=== PATIENT | male | born 1990 ===

== ENCOUNTER 2016-12-09 21:16 | Emergency (ER) | payer BC ==
[2016-12-09 21:27] VITALS: BP 149/77
--- NOTE | 2016-12-09 22:17 | EDM.PDOC ---
ED HPI GENERAL MEDICAL PROBLEM - General Chief Complaint: Lower Extremity Injury/Pain Stated Complaint: KNEE SURGERY PATIENT/PAINFUL SPOT ON KNEE Time Seen by Provider: 12/09/16 21:42 Source of Information: Reports: Patient, RN Notes Reviewed - History of Present Illness INITIAL COMMENTS - FREE TEXT/NARRATIVE: 26-year-old male comes in with right knee pain. He had arthroscopic surgery on the knee 4 days ago at [facility]. He's been having a lot of pain since discharge. He is on OxyContin twice daily and then taking hydrocodone 1 tablet every 4 hours in addition. The hydrocodone is just not getting adequate pain relief. They then did start reading information about blood clot information and became concerned about possible blood clot formation. He does have some pain now radiating to the medial aspect of his lower leg just below the knee. Does have some mild diffuse swelling of the lower leg but not severe. He does have some diffuse swelling of the knee as well as would be expected. There is been no drainage from the incision sites. No erythema has developed of the knee or leg. He has pain. He has had no chest pain or difficulty breathing, no fever or chills. Right Knee Pain Score (Numeric/FACES): 3 - Related Data Allergies Allergy/AdvReac Type Severity Reaction Status Date / Time azithromycin Allergy Cannot Verified 12/09/16 21:27 Remember Sulfa (Sulfonamide Allergy Cannot Verified 12/09/16 21:27 Antibiotics) Remember Home Meds: Home Meds . [No Known Home Meds] 10/17/15 [History] Past Medical History - Past Health History Medical/Surgical History: Denies Medical/Surgical History Cardiovascular History: Reports: Heart Murmur, Hypertension - Past Surgical History Musculoskeletal Surgical History: Reports: Arthroscopic Knee, Other (See Below) Social & Family History - Family History Family Medical History: Noncontributory - Tobacco Use Smoking Status *Q: Unknown Ever Smoked Years of Tobacco use: 12 Packs/Tins Daily: 1 Second Hand Smoke Exposure: No - Recreational Drug Use Recreational Drug Use: No Review of Systems - Review of Systems Review Of Systems: See Below Constitutional: Denies: Chills, Diaphoresis, Fever Mouth/Throat: Reports: No Symptoms Respiratory: Denies: Shortness of Breath, Pleuritic Chest Pain, Hemoptysis Cardiovascular: Denies: Chest Pain, Palpitations GI/Abdominal: Denies: Abdominal Pain, Nausea, Vomiting Musculoskeletal: Reports: Leg Pain (Right medial proximal leg just below the knee), Joint Pain, Joint Swelling (Right knee right knee). Denies: Muscle Pain Skin: Denies: Erythema Neurological: Denies: Numbness, Tingling, Weakness ED EXAM, GENERAL - Physical Exam Exam: See Below General Appearance: Alert, Moderate Distress Eye Exam: Bilateral Eye: PERRL Throat/Mouth: Normal Inspection Neck: Supple, Full Range of Motion Respiratory/Chest: No Respiratory Distress, Lungs Clear, Normal Breath Sounds Cardiovascular: Regular Rate, Rhythm Extremities: Normal Inspection, Pedal Edema (There is mild swelling of the proximal right lower leg, moderate swelling of the knee, incision sites look good, no drainage, diffuse tenderness of the knee as expected). No: Leg Pain, Increased Warmth, Redness Neurological: Alert, Oriented, No Motor/Sensory Deficits Skin Exam: Warm, Dry, Normal Color Course - Vital Signs Last Recorded V/S: Last Vital Signs Temp 97.3 F 12/09/16 21:23 Pulse 93 12/09/16 21:23 Resp 16 12/09/16 21:23 BP 149/77 H 12/09/16 21:23 Pulse Ox 98 12/09/16 21:23 - Re-Assessments/Exams Free Text/Narrative Re-Assessment/Exam: 12/09/16 23:43. I do not see signs or symptoms of DVT or PE at this time. The swelling I see of his knee and proximal leg are compatible with 4 days postoperative. Charge instructions as documented Departure - Departure Time of Disposition: 22:15 Disposition: Home, Self-Care 01 Condition: Fair Clinical Impression: Knee pain Qualifiers: Chronicity: acute Laterality: right Qualified Code(s): M25.561 - Pain in right knee - Discharge Information Instructions: Knee Pain Referrals: Peri Portillo PA [Primary Care Provider] - Forms: ED Department Discharge Additional Instructions: Continue to rest knee, continue ice packs as needed for swelling and discomfort , keep leg and knee elevated as much as possible, start gentle exercises of your ankle joint which will work her calf muscle, help the circulation of your lower leg. Percocet 1 tab every 4-6 hours as needed for severe pain. Call or see Dr. Ornelas as needed. Return to ED if symptoms worsening in any way as discussed.
== END 2016-12-09 22:34 | disposition home or self-care (01) ==
LOC: JD.ED 21:16
DX: M25.561 Pain in right knee (principal); I10 Essential (primary) hypertension; Z98.890 Other specified postprocedural states; Z88.1 Allergy status to other antibiotic agents; Z88.2 Allergy status to sulfonamides
CPT/HCPCS: 99282; 99283